=== PATIENT | male | born 1985 | race Caucasian/White ===

== ENCOUNTER 2017-10-14 22:24 | Inpatient (IN) | payer OTHER ==
[~2017-10-14] VITALS: Ht 182.9 cm; Wt 65.1 kg
[~2017-10-14 22:24] MED LIST: ADDE25CA PO; CLON0.1T PO; CLON1 PO
[2017-10-14 22:39] VITALS: BP 127/80; PULSE 81; RESP 18; TEMP 100
--- NOTE | 2017-10-15 00:41 | PD ---
HPI Chief Complaint: Psychiatric Symptoms Time Seen by Provider: 00:36 Travel History International Travel<30 days: No Contact w/Intl Traveler<30days: No Traveled to known affect area: No History of Present Illness HPI 32-year-old white male presents to emergency department as a transfer from [facility] to be seen by the psychiatrist. The patient is been medically cleared. He denies any suicidal homicidal ideation. No toxic ingestions. PFSH Past Medical History ADHD: Yes Bipolar Disorder: Yes Hypertension: Yes Psychiatric: Yes (PTSD) Immunizations Current: Yes Social History Alcohol Use: No Tobacco Use: Yes Substance Use: No (adamantly and repeatedly denies any current drug use) Allergies-Medications (Allergen,Severity, Reaction): Coded Allergies: No Known Allergies (Unverified , 10/14/17) Reported Meds & Prescriptions Reported Meds & Active Scripts Active Reported Klonopin (Clonazepam) 1 Mg Tab 1 Mg PO TID Adderall Xr 24 HR (Amphetamine-Dextroamphetamine ER 24 HR) 25 Mg Cap 200 Mg PO DAILY Once daily in the morning. Clonidine (Clonidine HCl) 0.1 Mg Tab 0.1 Mg PO DAILY Review of Systems General / Constitutional: No: Fever Eyes: No: Visual changes HENT: No: Headaches Cardiovascular: No: Chest Pain or Discomfort Respiratory: No: Shortness of Breath Gastrointestinal: No: Abdominal Pain Genitourinary: No: Dysuria Musculoskeletal: No: Pain Skin: No Rash Neurologic: No: Weakness Psychiatric: No: Depression Endocrine: No: Polydipsia Hematologic/Lymphatic: No: Easy Bruising Physical Exam Narrative GENERAL: Well-nourished, well-developed patient. SKIN: Warm and dry. HEAD: Normocephalic and atraumatic. EYES: No scleral icterus. No injection or drainage. ENT: No nasal drainage noted. Mucous membranes pink. Airway patent. NECK: Supple, trachea midline. Moves head freely without obvious discomfort. CARDIOVASCULAR: Regular rate and rhythm without murmurs, gallops, or rubs. RESPIRATORY: Breath sounds equal bilaterally. No accessory muscle use. GASTROINTESTINAL: Abdomen soft, non-tender, nondistended. EXTREMITIES: No cyanosis or edema. BACK: Nontender without obvious deformity. No CVA tenderness. NEURO: Patient is alert and oriented. no sensorimotor deficits. Nonfocal. Normal speech. Data Data Last Documented VS Vital Signs Date Time Temp Pulse Resp B/P (MAP) Pulse Ox O2 Delivery O2 Flow Rate FiO2 10/14/17 22:39 100.0 81 18 127/80 (96) Room Air MDM Medical Decision Making Medical Screen Exam Complete: Yes Emergency Medical Condition: Yes Medical Record Reviewed: Yes Interpretation(s) UDS positive for cannabinoids and amphetamines. Differential Diagnosis MDM: High Differential diagnoses: Schizophrenia, schizoaffective disorder, bipolar, anxiety, depression, adjustment reaction, mood disorder NOS, ODD, depressive disorder NOS, dementia, dementia with agitation, psychosis NOS, substance induced mood disorder, DMDD, Asperger syndrome, infection,electrolyte abnormality, malingering. Narrative Course Mental health screening discussed with the patient. Psychiatric screen ordered. The patient's been medically cleared by the doctor at [facility]. We're awaiting psychiatric evaluation and treatment. Diagnosis Primary Impression: Medical clearance for psychiatric admission Additional Impression: Polysubstance abuse Condition: Stable Carlos Lechuga Oct 15, 2017 00:41
[2017-10-15 06:13] VITALS: BP 140/91; PULSE 78; RESP 17
[2017-10-15] MEDS ORDERED: ACETAMINOPHEN 325 MG TAB PO PRN (11:15)
[2017-10-15] MEDS ORDERED: LORazepam 2 MG/ML VIAL IM PRN (11:15)
[2017-10-15] MEDS ORDERED: ALUMINUM/MAGNESIUM/SIMETH 30 ML CUP PO PRN (11:15)
[2017-10-15] MEDS ORDERED: LORazepam 1 MG TAB PO PRN (11:15)
[2017-10-15] MEDS ORDERED: diphenhydrAMINE HCL 50 MG/ML VIAL IM PRN (11:15)
[2017-10-15] MEDS ORDERED: MAGNESIUM HYDROXIDE SUSP 30 ML CUP PO PRN (11:15)
[2017-10-15] MEDS ORDERED: diphenhydrAMINE HCL 50 MG CAP PO PRN (11:15)
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
[2017-10-15 11:46] VITALS: BP 133/88; PULSE 90; RESP 18; O2SAT 98
[2017-10-15] MEDS: clonazePAM 1 MG TAB PO SCH ×2 (14:05→17:53)
[2017-10-15 14:29] VITALS: BP 135/92; PULSE 86; RESP 16; TEMP 98.2; O2SAT 98
[2017-10-16 05:36] VITALS: BP 114/70; PULSE 78; RESP 16; TEMP 97.8; O2SAT 99
[2017-10-16 06:59] LABS: AUTOMATED NEUTROPHIL # 2.5 TH/MM3 (1.8-7.7); BASOPHIL # 0.1 TH/MM3 (0-0.2); BASOPHIL % 1.3 % (0.0-2.0); EOSINOPHIL # 0.1 TH/MM3 (0-0.4); EOSINOPHIL % 2.1 % (0.0-4.0); HEMATOCRIT 39.5 % (39.0-51.0); HEMO FLAGS DIFF FINAL; LYMPH % 32.9 % (9.0-44.0); LYMPHOCYTE # 1.5 TH/MM3 (1.0-4.8); MEAN CELL VOLUME 91.7 FL (80.0-100.0); MEAN CORPUSCULAR HEMOGLOBIN 32.2 PG (27.0-34.0); MEAN CORPUSCULAR HGB CONC 35.1 % (32.0-36.0); MONO % 9.1 % (0.0-8.0); NEUT % 54.6 % (16.0-70.0); PLATELET COUNT 166 TH/MM3 (150-450); RED CELL DISTRIBUTION WIDTH 11.8 % (11.6-17.2); WHITE BLOOD COUNT 4.6 TH/MM3 (4.0-11.0)
[2017-10-16 07:43] LABS: ANION GAP 6 MEQ/L (5-15); AST (GOT) 7 U/L (15-37); BICARBONATE 27.4 MEQ/L (21.0-32.0); BLOOD UREA NITROGEN 14 MG/DL (7-18); CHLORIDE 108 MEQ/L (98-107); GLOMERULAR FILTRATION RATE 119 ML/MIN (>89); POTASSIUM 3.8 MEQ/L (3.5-5.1); SODIUM (NA) 141 MEQ/L (136-145)
[2017-10-16 07:44] LABS: ALT (GPT) 14 U/L (12-78)
[2017-10-16 08:10] LABS: ALKALINE PHOSPHATASE 42 U/L (45-117); HDL CHOLESTEROL 43.2 MG/DL (40.0-60.0); LDL CHOLESTEROL 60 MG/DL (0-99); TOTAL BILIRUBIN ADULT 1.4 MG/DL (0.2-1.0)
[2017-10-16] MEDS: clonazePAM 1 MG TAB PO SCH ×3 (09:00→17:01)
[2017-10-16] MEDS: cloNIDine HCL 0.1 MG TAB PO SCH (09:00)
--- NOTE | 2017-10-16 09:59 | HHI.PYPN ---
Subjective Remarks initially admitted by Dr. Mehran Wilkinson, his initial psychiatric evaluation reviewed and agreed with. I have completed the initial psychiatric template. Patient seen in his room with nurse Parth. Patient alert intense somewhat confusing white male with multiple tattoos both lower arms. Is quite tangential circumstantial has but appears to be a superficial awareness of various multiple psychotropic medications but he states he has been on in the past with limited efficacy. Today he denies voices or visions. Denies suicidality. He does minimize or rationalize his drug use though he said he has been on drug since 14 years of age. He acknowledges an 89 year alf sentence for [employer]. He states she is and has a 3-year-old son. It is questionable if his will allow him back in the home. In any event at the present time I feel patient does meet criteria for further involuntary inpatient psychiatric observation assessment and treatment. I did review the medications. Thus patient is on scheduled Klonopin we will discontinue the when necessary Ativan discontinue the when necessary Benadryl try to keep is drug free as possible observe any changes or resolution of his symptoms. He his vague justification for his continued urinary toxicology positive for amphetamines. He states he has used marijuana and has used in the past stating does well to control his behaviors. Dr. Wilkinson has done first opinion petition supporting Curry act I agree patient meets criteria for involuntary psychiatric hospitalization under the Curry act thus I will sign second opinion petition supporting Curry act Review of Systems Except as stated in HPI: all other systems reviewed are Neg Mental Status Examination Appearance: Appropriate Consciousness: Alert Orientation: Person, Place, Date/Time Motor Activity: Normal gait Speech: Pressured, Rapid Language: Adequate Fund of Knowledge: Adequate Attention and Concentration: Inadequate Memory: Unremarkable Mood: Manic Affect: Labile Thought Process & Associations: Loose associations, Circumstantial, Tangential Thought Content: Bizarre thinking, Ideas of reference Hallucination Type: Auditory Delusion Type: Bizarre, Paranoid Suicidal Ideation: No Suicidal Plan: No Suicidal Intention: No Homicidal Ideation: No Homicidal Plan: No Homicidal Intention: No Insight: Poor Judgment: Impulsive Results Labs Test 10/16/17 06:05 White Blood Count 4.6 TH/MM3 Red Blood Count 4.30 MIL/MM3 Hemoglobin 13.9 GM/DL Hematocrit 39.5 % Mean Corpuscular Volume 91.7 FL Mean Corpuscular Hemoglobin 32.2 PG Mean Corpuscular Hemoglobin Concent 35.1 % Red Cell Distribution Width 11.8 % Platelet Count 166 TH/MM3 Mean Platelet Volume 7.2 FL Neutrophils (%) (Auto) 54.6 % Lymphocytes (%) (Auto) 32.9 % Monocytes (%) (Auto) 9.1 % Eosinophils (%) (Auto) 2.1 % Basophils (%) (Auto) 1.3 % Neutrophils # (Auto) 2.5 TH/MM3 Lymphocytes # (Auto) 1.5 TH/MM3 Monocytes # (Auto) 0.4 TH/MM3 Eosinophils # (Auto) 0.1 TH/MM3 Basophils # (Auto) 0.1 TH/MM3 CBC Comment DIFF FINAL Differential Comment Blood Urea Nitrogen 14 MG/DL Creatinine 0.76 MG/DL Random Glucose 90 MG/DL Total Protein 6.3 GM/DL Albumin 3.6 GM/DL Calcium Level 8.5 MG/DL Alkaline Phosphatase 42 U/L Aspartate Amino Transf (AST/SGOT) 7 U/L Alanine Aminotransferase (ALT/SGPT) 14 U/L Total Bilirubin 1.4 MG/DL Sodium Level 141 MEQ/L Potassium Level 3.8 MEQ/L Chloride Level 108 MEQ/L Carbon Dioxide Level 27.4 MEQ/L Anion Gap 6 MEQ/L Estimat Glomerular Filtration Rate 119 ML/MIN Triglycerides Level 55 MG/DL Cholesterol Level 114 MG/DL LDL Cholesterol 60 MG/DL HDL Cholesterol 43.2 MG/DL Cholesterol/HDL Ratio 2.63 RATIO Vitamin B12 Level 697 PG/ML 25-Hydroxy Vitamin D Total 33.8 ng/ML Thyroid Stimulating Hormone 3rd Gen 0.801 uIU/ML Vitals/IOs Vital Signs Date Time Temp Pulse Resp B/P (MAP) Pulse Ox O2 Delivery O2 Flow Rate FiO2 10/16/17 05:36 97.8 78 16 114/70 (85) 99 10/15/17 11:46 Room Air Assessment & Plan Problem List: (1) Bipolar disorder, current episode mixed, severe, with psychotic features ICD Codes: F31.64 - Bipolar disorder, current episode mixed, severe, with psychotic features (2) Polysubstance abuse ICD Codes: F19.10 - Other psychoactive substance abuse, uncomplicated Status: Acute Assessment & Plan Estimated LOS: days patient remains Leon somewhat psychotic, this may be substance related issue. Will continue patient on his Klonopin scheduled consider addition of psychotropic after further monitoring for 24 hours Justification for Cont. Inpt. This time patient will decompensate if placed in the lower level of care Discharge Planning That is problematic at this time. Further conversation with patient's Request HC Surrog/Guard Advoc?: No Ty Riojas MD Oct 16, 2017 09:59
[2017-10-16 11:00] LABS: HEMOGLOBIN A1a 1.1 %; HEMOGLOBIN A1b 0.6 %; HEMOGLOBIN Ao 86.8 %; HEMOGLOBIN F 1.3 %; HEMOGLOBIN LA1C 1.8 %; HEMOGLOBIN P3 3.1 %
--- NOTE | 2017-10-16 14:57 | EKG ---
Date Performed: 10/16/2017 Time Performed: 11:37:37 PTAGE: 32 years EKG: Sinus rhythm NORMAL ECG NO PREVIOUS TRACING DOCTOR: Lei Espino Interpretating Date/Time 10/16/2017 14:55:53
[2017-10-16 17:12] VITALS: BP 124/61; PULSE 88; RESP 18; TEMP 98.4; O2SAT 99
[2017-10-17 06:00] VITALS: BP 115/91; PULSE 71; RESP 16; TEMP 98.1; O2SAT 98
[2017-10-17] MEDS: clonazePAM 1 MG TAB PO SCH ×2 (08:41→12:58)
[2017-10-17] MEDS: cloNIDine HCL 0.1 MG TAB PO SCH (09:00)
[2017-10-17] MEDS ORDERED: CLON.1 PO (14:04)
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
== END 2017-10-17 16:05 | disposition home or self-care (01) | DRG 885 ==
LOC: NEPJ 22:24 → NEDA 10-15 11:08 → H270 10-15 12:50
PROVIDERS: ADMIT Psychiatry & Neurology Psychiatry; ATTEND Psychiatry & Neurology Psychiatry
DX: F31.64 Bipolar disorder, current episode mixed, severe, with psychotic features (principal); I10 Essential (primary) hypertension; F19.10 Other psychoactive substance abuse, uncomplicated; F43.10 Post-traumatic stress disorder, unspecified; F90.9 Attention-deficit hyperactivity disorder, unspecified type; F17.210 Nicotine dependence, cigarettes, uncomplicated
CPT/HCPCS: 70450; 80053; 80061; 80307; 81001; 82306; 82607; 83036; 84443; 85025; 93005; J2060; J7030; Q0163